=== PATIENT | female | born 1975 | race Caucasian/White ===

== ENCOUNTER 2021-01-16 11:02 | Outpatient (CLI) | payer OTHER, SELFPAY ==
--- NOTE | ~2021-01-16 | US_ITS ---
EXAMINATION: US thyroid DATE: 01/16/2021 11:27 INDICATION: Nontoxic thyroid nodule TECHNIQUE: Multiple ultrasound images of the thyroid were obtained. COMPARISON: None. FINDINGS: The right thyroid lobe measures 4.9 x 1.3 x 1.5 cm. The left thyroid lobe measures 4.4 x 1.2 x 1.4 c m . The thyroid isthmus measures 2 mm . 1-2 mm peripheral echogenic nodule within a wider than tall a nechoic cystic nodule with smooth margins in the right thyroid lobe which measures 7 mm in maximal di ameter (TI-RADS 1, benign, no FNA recommended). There is normal echotexture, echogenicity and vascula r flow throughout the remainder of the thyroid gland. IMPRESSION: 1. 7 mm benign TI RADS 1 cystic right thyroid nodule. Otherwise unremarkable thyroid. Reviewed, dictated and finalized at location B. IMPRESSION: 1. 7 mm benign TI RADS 1 cystic right thyroid nodule. Otherwise unremarkable th yroid.
== END 2021-01-16 11:03 | disposition home or self-care (01) ==
PROVIDERS: PCP Internal Medicine; Visit Provider Internal Medicine
DX: E04.1 Nontoxic single thyroid nodule (principal)
CPT/HCPCS: 76536

== ENCOUNTER 2021-07-04 15:30 | Emergency (ER) | payer OTHER, SELFPAY ==
[2021-07-04 15:37] VITALS: BP 121/90; PULSE 76; RESP 18; TEMP 36.7; O2SAT 100
--- NOTE | 2021-07-04 15:39 | ED.FEMALEGU ---
HPI - Female Genitourinary General Chief complaint: Urogenital-Female Stated complaint: UTI Time Seen by Provider: 07/04/21 15:50 Source: patient Mode of arrival: ambulatory Limitations: no limitations History of Present Illness HPI Narrative: Heather Covarrubias is a 46 yo female no PMH who [facility] with complaints of urgency frequency dysuria of for the last for 5 days she has been taking Azo and drinking cranberry juice but still has worsening symptoms. She has a history of UTI but has not had urinary tract infection in the last 3 years Related Data Home Medications Medication Instructions Recorded Confirmed cetirizine [Zyrtec] 10 mg PO DAILY 07/04/21 07/04/21 multivitamin with minerals [All 1 tablet PO DAILY 07/04/21 07/04/21 Purpose Multivitamin-Min] Allergies Allergy/AdvReac Type Severity Reaction Status Date / Time codeine Allergy Unknown Other Verified 07/04/21 15:52 Sulfa (Sulfonamide AdvReac Mild Nausea Verified 07/04/21 15:52 Antibiotics) Review of Systems Review of Systems: CONSTITUTIONAL: Denies fever, chills, sweats. EYES: Denies visual changes, redness, discharge. ENT: Denies rhinorrhea, congestion, sore throat, otalgia. CARDIOVASCULAR: Denies chest pain, palpitations, edema. RESPIRATORY: Denies dyspnea, wheezing, cough GASTROINTESTINAL: Denies abdominal pain, nausea, vomiting, diarrhea. GENITOURINARY: As dysuria, hematuria, abnormal discharge SKIN: Denies rash or itching. NEUROLOGIC: Denies numbness, or focal weakness. PSYCHIATRIC: Denies anxiety or depression. [facility] Past Medical History Medical History Abnormal TSH Anxiety Hx of basal cell carcinoma Family History Family History Mother Family history of mental disorder Father Family history of bipolar disorder Family history of diabetes mellitus in first degree relative Sibling Patient's brother is in good health Grandparent Family history of malignant neoplasm of breast Social History Social History Smoking status: Never smoker Second hand tobacco smoke exposure: No Alcohol intake: current Comments At time of signature, I agree with nursing past medical, surgical, social and family history. There is no relevant family history pertinent to the presenting complaint. Exam Narrative: GENERAL: This is a well-nourished, well-developed patient, in mild distress. HEAD: normocephalic, atraumatic. EYES:. Sclera clear/white. Vision is grossly intact. EARS: External ears normal, Hearing grossly intact. NOSE: External nose normal without nasal discharge, nares without redness, no rhinorrhea. THROAT: Mucous membranes moist, NECK: Neck supple, non-tender CARDIOVASCULAR: Regular rate and rhythm without murmurs, gallops, or rubs. RESPIRATORY: Clear to auscultation. Breath sounds equal bilaterally. No wheezes, rales, or rhonchi. GASTROINTESTINAL: Abdomen soft, non-tender, SKIN: warm, intact with no suspicious lesions or rash, good texture and turgor. NEURO: awake, alert, and oriented to person, place and time. There were no obvious focal neurologic abnormalities. Steady gait EXTREMITIES: Normal range of motion. BACK: Nontender without deformity Course Course Emergency Course: [facility] with 4 to 5 days of frequency and dysuria with no nausea vomiting or back pain And dipstick showed only nitrite was sent for culture Started on cephalexin 500 mg 1 twice daily x5 days Vital Signs Vital signs: Vital Signs Temperature 98.1 F 07/04/21 15:37 Pulse Rate 76 07/04/21 15:37 Respiratory Rate 07/04/21 15:37 Blood Pressure 121/90 07/04/21 15:37 Pulse Oximetry 100 07/04/21 15:37 Temperature 98.1 F 07/04/21 15:37 Pulse Rate 76 07/04/21 15:37 Respiratory Rate 18 07/04/21 15:37 Blood Pressure 121/90 07/04
== END 2021-07-04 16:22 | disposition home or self-care (01) ==
PROVIDERS: Emergency Provider Nurse Practitioner; PCP Internal Medicine
DX: R30.0 Dysuria (principal); F41.9 Anxiety disorder, unspecified; Z85.828 Personal history of other malignant neoplasm of skin
CPT/HCPCS: 81003; 87077; 87086; 87088; 87186; 99213; G0463

== ENCOUNTER 2022-08-19 16:25 | Outpatient (CLI) | payer OTHER, SELFPAY ==
--- NOTE | ~2022-08-19 | US_ITS ---
EXAMINATION: US thyroid DATE: 08/19/2022 16:45 INDICATION: Nontoxic single thyroid nodule. TECHNIQUE: Multiple ultrasound images of the thyroid were obtained. COMPARISON: Thyroid ultrasound 01/16/2021 FINDINGS: The right thyroid lobe measures 4.4 x 1.3 x 1.5 cm. The left thyroid lobe measures 4.7 x 1.5 x 1.5 c m. In the right thyroid lobe, there is an 8 mm predominantly cystic nodule (TI-RADS TR1). IMPRESSION: 1. Small thyroid nodule, likely benign. No follow-up is needed. Reviewed, dictated and finalized at location A. EXPEDITOR
== END 2022-08-19 16:26 | disposition home or self-care (01) ==
LOC: ANHIMG 16:27
PROVIDERS: PCP Internal Medicine; Visit Provider Internal Medicine
DX: E04.1 Nontoxic single thyroid nodule (principal)
CPT/HCPCS: 76536

== ENCOUNTER 2022-10-08 00:23 | Day surgery (SDC) | payer OTHER, SELFPAY ==
[2022-09-24 14:54] VITALS: BMI 26.8
[2022-10-08 07:08] VITALS: BP 123/81; PULSE 83; RESP 18; TEMP 36.3; O2SAT 100; BMI 27.8
[2022-10-08] MEDS: LACTATED RINGERS 1,000 ML 150 ML IV CONT (07:26)
--- NOTE | 2022-10-08 07:44 | WPDANESEPPF ---
Anes - Initial Pre Proc Eval Procedure: Operation Date: 10/08/22 08:30 Proposed Procedures p Screening Colonoscopy - Gordon Zelaya MD Date/Time: 10/08/22 07:44 Surgeon: Gordon Zelaya MD Pre Op Diagnosis: neoplasm screening Patient Data Age: 47 Gender: F Height: 1.73 m Weight: 83.2 kg Last Vital Signs Temp 97.4 F L 10/08/22 07:08 Pulse 83 10/08/22 07:08 Resp 18 10/08/22 07:08 BP 123/81 10/08/22 07:08 Pulse Ox 100 10/08/22 07:08 O2 Del Method Room Air 10/08/22 07:08 Allergies Allergy/AdvReac Type Severity Reaction Status Date / Time Sulfa (Sulfonamide AdvReac Mild Nausea Verified 10/08/22 07:06 Antibiotics) codeine AdvReac Unknown Nausea Verified 10/08/22 07:06 Home Medications Medication Instructions Recorded Confirmed Type cetirizine 10 mg tablet (Zyrtec) 10 mg PO DAILY 07/04/21 09/24/22 History multivitamin with minerals 1 tablet PO DAILY 07/04/21 09/24/22 History bupropion HCl 300 mg 24 hr tablet, 300 mg PO QAM #90 tabs 02/27/22 09/24/22 Rx extended release levothyroxine 50 mcg tablet 50 mcg PO DAILY #90 tabs 09/07/22 10/08/22 Rx buspirone 15 mg tablet 15 mg PO DAILY 10/08/22 10/08/22 History Patient hx anesthesia problems: none Family hx anesthesia problems: none Results Review: All pre-operative results and documents have been reviewed as part of the pre-operative evaluation. [facility] Past Medical History Medical History Abnormal TSH Anxiety Hx of basal cell carcinoma Family History Family History Mother Family history of mental disorder Father Family history of bipolar disorder Family history of diabetes mellitus in first degree relative Sibling Patient's brother is in good health Grandparent Family history of malignant neoplasm of breast Social History Social History (Updated 08/10/22 @ 16:27 by Kirby Meza MA) Smoking status: Never smoker Second hand tobacco smoke exposure: No Alcohol intake: current Drinks per week: 1 Substance use type: does not use Lack of Transportation: No Lack of Food: Never True Current Housing: I Have Housing Concerned About Future Housing: No Difficulty Paying Gas/Electric Bills: No Difficulty Paying for Meds: No Currently Unemployed: YES Education: High School Diploma/GED Difficulty w/ Childcare or Family Care: No Living arrangements: with family Spiritual care concerns: No Anes - Eval Final PreProcedure Day of Procedure 10/08/22 07:44 Patient weight: normal Heart: regular rate and rhythm Lungs: clear to auscultation Airway: Mallampati scale class II Neurological: alert and oriented Last oral intake: >/= 8 hours ASA classification: II Emergent: no Anesthetic plan: proceed Anesthesia type and monitoring: general GIVS and standard monitoring Results Review: All pre-operative results and documents have been reviewed as part of the pre-operative evaluation. Informed Consent: The patient's anesthetic plan and its attendant risks and benefits were discussed with the patient/family/POA. Questions were solicited and answers provided to the satisfaction of the patient/family/POA.
--- NOTE | 2022-10-08 07:51 | PM.HPGS ---
History of Present Illness History of Present Illness Consent: Risks, benefits, and alternatives have been discussed and questions answered. Patient agrees to proceed with procedure. Chief complaint: neoplasm screening Narrative: Heather Covarrubias is a 47 year old female Presents for screening colonoscopy. Patient's current weight appetite bowel movements are normal. Patient denies abdominal pain, she has had no bleeding. Current weight appetite bowel movements are normal. Family history noncontributory. Review of Systems Review of Systems: Review of systems noncontributory. [facility] Past Medical History Medical History Abnormal TSH Anxiety Hx of basal cell carcinoma Family History Family History Mother Family history of mental disorder Father Family history of bipolar disorder Family history of diabetes mellitus in first degree relative Sibling Patient's brother is in good health Grandparent Family history of malignant neoplasm of breast Social History Social History (Updated 08/10/22 @ 16:27 by Kibry Meza MA) Smoking status: Never smoker Second hand tobacco smoke exposure: No Alcohol intake: current Drinks per week: 1 Substance use type: does not use Lack of Transportation: No Lack of Food: Never True Current Housing: I Have Housing Concerned About Future Housing: No Difficulty Paying Gas/Electric Bills: No Difficulty Paying for Meds: No Currently Unemployed: YES Education: High School Diploma/GED Difficulty w/ Childcare or Family Care: No Living arrangements: with family Spiritual care concerns: No Meds Home Medications and Allergies Home Medications Medication Instructions Recorded Confirmed Type cetirizine 10 mg tablet (Zyrtec) 10 mg PO DAILY 07/04/21 09/24/22 History multivitamin with minerals 1 tablet PO DAILY 07/04/21 09/24/22 History bupropion HCl 300 mg 24 hr tablet, 300 mg PO QAM #90 tabs 02/27/22 09/24/22 Rx extended release levothyroxine 50 mcg tablet 50 mcg PO DAILY #90 tabs 09/07/22 10/08/22 Rx buspirone 15 mg tablet 15 mg PO DAILY 10/08/22 10/08/22 History Allergies Allergy/AdvReac Type Severity Reaction Status Date / Time Sulfa (Sulfonamide AdvReac Mild Nausea Verified 10/08/22 07:06 Antibiotics) codeine AdvReac Unknown Nausea Verified 10/08/22 07:06 Vital Signs Vital Signs - 24 hr 10/08/22 07:08 Temperature 97.4 F L Pulse Rate 83 Respiratory Rate 18 Blood Pressure 123/81 Pulse Oximetry 100 Oxygen Delivery Room Air Exam Narrative: Physical exam reveals patient to be alert. Vital signs stable. HEENT exam is unremarkable. Patient is anicteric. Lungs are clear to auscultation and percussion. Heart is without murmur or extra sounds. Abdomen bowel sounds present soft nontender with no organomegaly. Digital external rectal exam is normal. Assessment and Plan Assessment and plan (1) Encounter for screening colonoscopy: Code(s): Z12.11 - Encounter for screening for malignant neoplasm of colon Status: Acute Assessment and Plan: Patient presents for screening colonoscopy. She appears to be at average risk for colon polyps. Further recommendations may be given after endoscopy.
[2022-10-08 08:24] VITALS: BP 97/54; PULSE 85; RESP 23; O2SAT 100
[2022-10-08 08:34] VITALS: BP 99/61; PULSE 85; RESP 17; O2SAT 100
[2022-10-08 08:44] VITALS: BP 107/77; PULSE 66; RESP 17; O2SAT 100
== END 2022-10-08 09:06 | disposition home or self-care (01) ==
PROVIDERS: PCP Internal Medicine; Visit Provider Internal Medicine Gastroenterology
PROC: 0DJD8ZZ Inspection of Lower Intestinal Tract, Via Natural or Artificial Opening Endoscopic (ICD-10-PCS; CPT 45378; principal; 2022-10-08 08:30)
DX: Z12.11 Encounter for screening for malignant neoplasm of colon (principal); D12.8 Benign neoplasm of rectum; K64.8 Other hemorrhoids; F41.9 Anxiety disorder, unspecified
CPT/HCPCS: 45380; 88305; J2704; J7120

== ENCOUNTER → 2023-05-17 07:02 | Outpatient (CLI) | payer OTHER, SELFPAY ==
--- NOTE | ~2023-05-17 | MR_ITS ---
MRI of the brain Clinical History: Headache Technique: Axial and sagittal T1-weighted images were acquired. These were followed by axial T2-weigh layla, diffusion weighted, gradient, and FLAIR images. Coronal thin cut T1-weighted and T2-weighted analilia ges, and axial thin cut T1-weighted images, were acquired through the internal auditory canals. Findings: No abnormal signal seen in the brain parenchyma. No acute infarct, intracranial hemorrhage or mass lesion identified. Ventricles and subarachnoid spaces are unremarkable. Orbits are unremarkable. Paranasal sinuses and m astoid air cells are clear. Major intracranial flow voids appear intact. Sagittal midline structures are intact. No abnormality seen at the internal auditory canals or cerebellopontine angle regions. IMPRESSION: Unremarkable exam. Reviewed, dictated and finalized at location M. IMPRESSION: Unremarkable exam.
== END ==
PROVIDERS: PCP Internal Medicine; Visit Provider Internal Medicine
DX: R51.9 Headache, unspecified (principal)
CPT/HCPCS: 70551

== ENCOUNTER 2024-06-15 08:03 | Emergency (ER) | payer OTHER, SELFPAY ==
[2024-06-15 08:17] VITALS: BP 116/78; PULSE 88; RESP 16; TEMP 36.9; O2SAT 100
--- NOTE | 2024-06-15 08:24 | ED.URI ---
HPI - URI/Sore Throat General Chief Complaint: Upper Respiratory Infection Stated Complaint: congestion Time Seen by Provider: 06/15/24 08:26 Source: patient and RN notes reviewed Mode of arrival: ambulatory Limitations: no limitations History of Present Illness HPI Narrative: 49 y/o female presented for c/o cough, sore throat, nasal drainage and pressure, and reports ear pain right worse than left. Onset 4 days. Reports body aches yesterday. Taking Tiffanie seltzer, which caused 'paranoia' last night. Denies sob, wheezing, n/v/d/f/c. MD elicited complaint: cough Related Data Home Medications Medication Instructions Recorded Confirmed cetirizine 10 mg tablet (Zyrtec) 10 mg PO DAILY 07/04/21 06/15/24 multivitamin with minerals 1 tablet PO DAILY 07/04/21 06/15/24 Allergies Allergy/AdvReac Type Severity Reaction Status Date / Time Sulfa (Sulfonamide AdvReac Mild Nausea Verified 06/15/24 08:16 Antibiotics) codeine AdvReac Unknown Nausea Verified 06/15/24 08:16 Review of Systems Review of Systems: CONSTITUTIONAL: Endorses malaise, denies chills, sweats, fever EYES: Denies visual changes, redness, or discharge ENT: Reports rhinorrhea, congestion, sinus pain, otalgia, sore throat CARDIOVASCULAR: Denies chest pain, palpitations, edema RESPIRATORY: Reports cough, post nasal drainage. Denies dyspnea GASTROINTESTINAL: Denies abdominal pain, nausea, vomiting, diarrhea SKIN: Denies rash or itching MUSCULOSKELETAL: Endorses myalgia NEUROLOGIC: endorses headache PMFSH Past Medical History Medical History Abnormal TSH Anxiety Hx of basal cell carcinoma Family History Family History Mother Family history of mental disorder Father Family history of bipolar disorder Family history of diabetes mellitus in first degree relative Sibling Patient's brother is in good health Grandparent Family history of malignant neoplasm of breast Social History Social History Smoking status: Never smoker Second hand tobacco smoke exposure: No Alcohol intake: current Drinks per week: 1 Substance use type: does not use Lack of Transportation: No Lack of Food: Never True Current Housing: I Have Housing Concerned About Future Housing: No Difficulty Paying Gas/Electric Bills: No Difficulty Paying for Meds: No Currently Unemployed: YES Education: High School Diploma/GED Difficulty w/ Childcare or Family Care: No Living arrangements: with family Spiritual care concerns: No Exam Narrative: GENERAL: Ill-appearing, nontoxic no acute distress. EYES: conjunctivae clear ENT: Mucous membranes moist. Bilateral TMs erythematous, bulging and intact; canals not erythematous, no drainage; no tragal tenderness. Oropharynx erythematous without lesions or exudate, no drooling, no hoarseness, no trismus, uvula midline. No tripod positioning, muffled voice, soft palate or pharyngeal wall bulging NECK: Supple. No lymphadenopathy CHEST: Clear to auscultation, breath sounds equal. No wheezing, rhonchi, rales, or stridor. No respiratory distress, speaks in full sentences. HEART: Regular rate and rhythm. No murmur heard. SKIN: Warm, dry, no rash. NEURO: Alert and oriented x3. PSYCH: Normal mood and affect Course Course Emergency Course: Patient is aware of diagnosis, understands and agrees to treatment plan. Anticipatory guidance given. Patient agrees to follow-up as directed and is aware of reasons to seek care at the emergency department. Portions of this record may have been created with voice recognition software Level of Care: Express Care Visit Vital Signs Vital signs: Vital Signs Temperature 98.4 F 06/15/24 08:17 Pulse Rate 88 06/15/24 08:17 Respiratory Rate 16 06/15/24 08:17 Blood Pressure 116/78 06/15/24 08:17 Puls
[2024-06-15 08:39] LABS: EDINFLUASCREEN Negative; EDINFLUBSCREEN Negative
== END 2024-06-15 08:46 | disposition home or self-care (01) ==
PROVIDERS: Emergency Provider Nurse Practitioner Family; PCP Internal Medicine
DX: H66.93 Otitis media, unspecified, bilateral (principal); U07.1 COVID-19; Z85.828 Personal history of other malignant neoplasm of skin
CPT/HCPCS: 87426; 87804; 99213; G0463

== ENCOUNTER 2024-12-28 08:01 | Outpatient (NON) | payer OTHER, SELFPAY ==
--- OUTSIDE RECORDS SUMMARY | 2024-12-29 08:08 | XMS_ITS | Referral Summary ---
[facility] Organization [facility] Address [address] [place] [address] Care Team Providers Care Cat And Dog Bather Name Role Phone Tyrese Fields MD Primary Care Provider [phone] Fide Machado MD Unavailable [phone] Allergies No known active allergies Medications buPROPion XL (WELLBUTRIN XL) 300 mg 24 hr tablet Take 1 tablet (300 mg total) by mouth daily Active valACYclovir (VALTREX) 1 gram tablet Take 1 tablet (1,000 mg total) by mouth 2 (two) times a day Active cetirizine (ZyrTEC) 10 mg tablet Take 1 tablet (10 mg total) by mouth daily Active levothyroxine (SYNTHROID) 50 mcg tablet Take 1 tablet (50 mcg total) by mouth daily 12/12/2023 Active Active Problems Problem Noted Date Diagnosed Date Encounter for gynecological examination without abnormal finding 02/21/2024 Assessment & Plan (02/21/2024 8:54 AM CDT): The patient was here for her well woman exam. Recommended healthy diet and exercise. Recommend yearly mammograms and regular colonoscopy screening. Discussed importance of regular visits and cholesterol screening with PCP. RTC 1 year or PRN. 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 2-4 times a month 02/21/2024 Q2: How many drinks containi ng alcohol do you have on a typical day when you are drinking? 1 or 2 02/21/2024 Q3: How often do you have si x or more drinks on one occasion? 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 Not on file Not on file Not on file Last Filed Vital Signs Vital Sign Reading Time Taken Comments Blood Pressure 116/68 02/21/2024 8:26 AM CDT Pulse 96 09/23/2019 2:45 AM DIRECTOR [employer] COMPLIANCE Temperature 36.7 C (98.1 F) 09/22/2019 7:17 PM [employer]PL[employer]ANCE Respiratory Rate 16 09/22/2019 7:17 PM [employer]PLIANCE Oxygen Saturation 93% 09/23/2019 2:45 AM DIRECTOR [employer]PLIANCE Inhaled Oxygen Concentration - - Weight 81.9 kg (180 lb 9.6 oz) 02/21/2024 8:26 A M CDT Height 175.3 cm (5' 9 ) 02/21/2024 8:26 AM CDT Body Mass Index 26.67 02/21/2024 8:26 AM CDT Plan of Treatment Not on file Procedures Procedure Name Priority Date/Time Associated Diagnosis Comments SCREENING MAMMOGRAM BILATERAL W OSCAR Schedule Routine, Read Routine (OP Routine) 05/30/2020 4:13 PM CDT Encounter for screening mammogram for malignant neoplasm of breast from Last 3 Months or Most Recently Relevant to Health Maintenance Results * Screening Mammogram Bilateral W Oscar (05/30/2020 4:13 PM CDT) Anatomical Region Laterality Modality Breast Bilateral Mammography Narrative 05/31/2020 11:18 AM CDT Screening Mammogram Bilateral W Oscar: 05/30/20 Clinical: Encounter for screening mammogram for malignant neoplasm of breast. Prior Study Comparisons: None. This is a baseline study. Findings: Bilateral No significant masses, malignant type calcifications, skin thickening, nipple retraction, or significant lymphadenopathy is noted in either breast. The CAD review showed no significant findings. The breasts are heterogeneously dense, which may obscure small masses. The patient will be notified of results by letter. Impression: BI-RADS ATLAS category (overall): 1 Negative There is no mammographic evidence of malignancy. Routine Screening Mammogram in 1 Yr is recommended for bilateral Overall Assessment: 1 - Negative us Self Screening Mammogram IMG MAMMO PROCEDURES Fi nal Result from Last 3 Months or Most Recently Relevant to Health Maintenance Insurance [employer] [facility] [employer] OPEN ACCESS [facility] [id number] Care Teams Cat And Dog Bather Relationship Specialty Start Date End Date Tyrese Fields MD [address] [place] [address] PCP - General 10/19/11 Fide Machado MD [address] [place] [address] Consulting Physician Obstetrics and Gynecology 01/10/24
--- OUTSIDE RECORDS SUMMARY | 2024-12-29 08:08 | XMS_ITS | Clinical Summary ---
Author Organization [facility] Address [address] [facility] [address] Care Team Providers Care Radiologic Tech Name Role Phone Tyrese Fields MD Primary Care Provider [phone]- [phone] Fide Machado MD Unavailable [phone] Allergies No known active allergies Medications buPROPion [...] allergic rhinitis 07/21/2013 Overview (01/14/2017): Seasonal allergies Surgical History Surgery Date Site/Laterality Comments HYSTERECTOMY 09/18/2016 TLH/BS - Biest; abnormal bleeding and pelvic pain LAPAROSCOPY 12/10/2015 - 01/09/2016 WNL per patient COLONOSCOPY 12/12/2015 Normal per patient BASAL CELL CARCINOMA EXCISION Neck ESSURE TUBAL LIGATION 10/11/2008 - 10/10/2009 and Ablation DILATION AND CURETTAGE OF UTERUS 07/13/2016 Benign / Rock BASAL CELL CARCINOMA EXCISION 10/11/2017 - 10/10/2018 right side of nose COLONOSCOPY 08/11/2023 - 09/09/2023 2 polyps; repeat 3 years Medical History Medical History Date Comments Pneumonia 12/2015 Hospitalized / ? Sepsis Menorrhagia Irregular menses - s/p TLH/BS - Biest 09/2016 HSV (herpes simplex virus) infection Anxiety and depression Basal cell carcinoma (BCC) of neck Excision Urinary incontinence 2017 referred to Ayesha....2019 - mixed incontinence - second referral to Ayesha. Discussed PT, trial Vesicare Family history of breast cancer MGM, PGM Family History Medical History Relation Name Comments Diverticulitis Brother Crohn's disease Father Bone cancer Maternal Grandfather Breast cancer Maternal Grandmother Anxiety disorder Mother Multiple sclerosis Other 2 Family hi story of Multiple sclerosis; Crohn's disease Other 3 Family histo ry of Crohn's disease; Hypertension Other 5 Family history of hypertension - (Added by TW Conv) Colon cancer Paternal Grandfather Breast cancer Paternal Grandmother Ovarian cancer Neg Hx Uterine cancer Neg Hx Relation Name Status Comments Brother Father Maternal Grandfather Maternal Grandmother Mother Other 1 Other 2 Other 3 Other 4 Other 5 Other 6 Other 7 Paternal Grandfather Paternal Grandmother Social History Tobacco Use Types Packs/Day Years [...] on file Legal Sex Female 2:11 AM BACKING IN MACHINE 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 Gender Identity Not on file Sexual Orientation Not on file 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 Not on file Not on file Not on file Obstetrics History Para Term AB IAB SAB Ectopic Multiple Livin g Live Births 2 2 2 2 2 Date Outcome GA Total Labor Labor/2nd/3rd Weight Sex Type Anes PTL Nathaly A1 A5 Name Clin Term Vag-Spo nt Term Vag-Spo nt Last Filed Vital Signs Vital Sign Reading Time Taken Comments Blood Pressure 116/68 02/21/2024 8:26 AM CDT Pulse 96 09/23/2019 2:45 AM BACKING IN MACHINE TENDER Temperature 36.7 C (98.1 F) 09/22/2019 7:17 PM BACKING IN MACHINE TENDER Respiratory Rate 16 09/22/2019 7:17 PM BACKING IN MACHINE TENDER Oxygen Saturation 93% 09/23/2019 2:45 AM BACKING IN MACHINE TENDER Inhaled Oxygen Concentration - - Weight 81.9 kg (180 lb 9.6 oz) 02/21/2024 8:26 A M CDT Height 175.3 cm (5' 9 ) 02/21/2024 8:26 AM CDT Body Mass Index 26.67 02/21/2024 8:26 AM CDT Plan of Treatment Health Maintenance Due Date Last Done Comments Colon Cancer Screening-Colonoscopy 1977 Depression Screening 1977 Hepatitis C Screening 1977 DTaP/Tdap/Td Vaccine (1 - Tdap) 1988 Hepatitis B Screening 1995 Breast Cancer Screening-Mammogram 05/30/2021 05/30/2020 Covid-19 Vaccine ( season) 2024 10/08/2021, 01/28/2021, 12/31/2020 Influenza Vaccine (#1) 2024 3, 09/12/2022, 08/24/2021, Additional history exists Regular Well Visit/Exam 18-64 02/20/2025 02/21/2024 Pneumococcal vaccine <65 Aged Out No longer eligible based on patient's age to complete this topic Procedures Procedure Name Priority Date/Time Associated Diagnosis [...] Most Recently Relevant to Health Maintenance Insurance [employer] [facility] [employer]LINK OPEN ACCESS Member Subscriber Plan / Payer (Ef fective 2020-Present) Name:Heather Smith Relation to Subscriber:Self Name:Heather Smith Payer ID:[id number] Type:HEALTHLINK HMO/PPO Address: [address] [place] [id number] [facility] [address] Care Teams Radiologic Tech Relationship Specialty Start Date End Date Tyrese Fields MD [address] [facility] [address] [place], [place] [id number] PCP - General 10/19/11 Fide Machado MD [address] [place] [address] Consulting Physician Obstetrics and Gynecology 01/10/24
--- OUTSIDE RECORDS SUMMARY | 2024-12-29 08:08 | XMS_ITS | Clinical Summary ---
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 Gender Identity Not on file Sexual Orientation Not on file Plan of Treatment Health Maintenance Due Date Last Done Comments Cervical Cancer Screening Pa p Smear (Age 30 to 64) Every 3 Years 1977 Colorectal Cancer Screening Colonoscopy (10 Years) 1977 Annual Physical 1980 Hepatitis C 1995 DTaP, Tdap and Td Vaccines ( 1 - Tdap) 1996 Hepatitis B Vaccines (1 of 3 - 19+ 3-dose series) 1996 Cervical Cancer Screening Pa p with HPV Testing (Age 30 to 64) Every 5 Years 2007 Cervical Cancer Screening with HPV 2007 Mammogram Screening 2017 COVID-19 Vaccine (2023-2 5 season) 2024 Influenza Adult (#1) 2024 Meningococcal B Vaccine Aged Out No l onger eligible based on patient's age to complete this topic Meningococcal Vaccine Aged Out No chayito patrick eligible based on patient's age to complete this topic Pneumococcal Vaccine: Pediat rics (0 to 5 Years) and At-Risk Patients (6 to 64 Years) Aged Out No longer eligible b ased on patient's age to complete this topic RSV Immunizations Under 20 Months Aged Out No longer eligible based on patient's age to complete this topic
--- OUTSIDE RECORDS SUMMARY | 2024-12-29 08:08 | XMS_ITS | Encounter Summary ---
Author Organization [facility] Care Team Providers Care Dairy Farm Operator Name Role Phone Tyrese Fields MD Primary Care Provider [phone]- [phone] Fide Machado MD Unavailable [phone] Encounter Details Date Type Department Care Team (Latest Contact Info) Description 12/12/2015 Orders Only [facility] CLINCONV Provider, MD [place] [address] [place] [address] Social History Tobacco Use Types Packs/Day Years Used Date Smoking Tobacco: Never Alcohol Use Standard Drinks/Week Comments No 0 (1 standard drink = 0.6 oz pur e alcohol) Comments Unknown Sex and Gender Information Value Date Recorded Sex Assigned at Not on file Legal 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 Historical Provider Final Res ult * PROCEDURE - RESULT (12/12/2015 12:00 AM PEARL CUTTER) Narrative 12/12/2015 12:00 AM PEARL CUTTER Ordered by an unspecified provider. us Historical Provider MD Final Res ult documented in this encounter Visit Diagnoses Not on filedocumented in this encounter Care Teams Dairy Farm Operator Relationship Specialty Start Date End Date Tyrese Fields MD [address] [place] [address] PCP - General 10/19/11 Fide Machado MD [address] [place] [address] Consulting Physician Obstetrics and Gynecology 01/10/24 documented as of this encounter
== END 2024-12-28 08:02 | disposition home or self-care (01) ==
LOC: ANHLAB 12-29 08:03
PROVIDERS: PCP Internal Medicine; Visit Provider Plastic Surgery
DX: D48.5 Neoplasm of uncertain behavior of skin (principal)
CPT/HCPCS: 88305; 88342

== ENCOUNTER → 2025-04-09 15:34 | Outpatient (REF) | payer OTHER, SELFPAY ==
--- NOTE | 2025-04-09 15:34 | S_PTH ---
PATIENT: Heather Covarrubias LOC: [facility] U#:[id number] AGE/SX: 50/F ROOM: RE04/09/[address]: Huseyin Lawrence MD : 1975 BED: DIS: SPEC #: [id number] RECD: 04/10/25 07:26 STATUS: DINORA REMelida #: [id number] JULY: 04/09/25 15:[address]: Huseyin Lawrence DEPT: [facility] Surgical RECD BY: Lani Corral ENTERED: 04/10/25 07:27 SP TYPE: Surgical OTHR DR: Sundar Mosher DO Tissues: A - Skin Procedures: Hematoxylin and Eosin Stain Gross and Microscopic Level 4
--- OUTSIDE RECORDS SUMMARY | 2025-04-09 15:36 | XMS_ITS | Encounter Summary ---
Author Organization [facility] Address [address] [place] [address] Care Team Providers Care Acls Nurse Name Role Phone Tyrese Fields DO Primary Care Provider [phone] Encounter Details Date Type Department Care Team (Late st Contact Info) Description 01/02/2025 Lab Requisition [facility] - Pathology Lab [address] [place] [id number] Lloyd Sandra MD [address] [place] [address] Illness, unspecified Social History Tobacco Use Types Packs/Day Years Used Date Smoking Tobacco: Never Assessed Comments Unknown Sex and Gender Information Value Date Recorded Sex Assigned at Not on file Legal Sex Female 11:12 AM MILLER ROD MILL Gender Identity Not on file Sexual Orientation Not on file documented as of this encounter Plan of Treatment Pending Results Name Type Priority Associated Diagnoses Date /Time SLIDE PREP HISTOLOGY Pathology Cytology Routine Illness, unspecified 01/02/2025 3:13 PM CDT documented as of this encounter Visit Diagnoses Diagnosis Illness, unspecified documented in this encounter Care Teams Acls Nurse Relationship Specialty Start Date End Date Tyrese Fields DO [address] [facility] [address] [place] [address] PCP - General 10/09/22 documented as of this encounter
--- OUTSIDE RECORDS SUMMARY | 2025-04-09 15:36 | XMS_ITS | Clinical Summary ---
Author Organization [facility] Address [address] [place] [address] Care Team Providers Care Envelope Stamping Machine Operator Name Role Phone Tyrese Fields MD Primary Care Provider [phone]- [phone] Fide Machado MD Unavailable [phone] Allergies No known active allergies Medications buPROPion XL (WELLBUTRIN XL) 300 mg 24 hr tablet Take 1 tablet (300 mg total) by mouth daily Active valACYclovir (VALTREX) 1 gram tablet Take 1 tablet (1,000 mg total) by mouth daily Active cetirizine (ZyrTEC) 10 mg tablet Take 1 tablet (10 mg total) by mouth daily Active levothyroxine (SYNTHROID) 50 mcg tablet Take 1 tablet (50 mcg total) by mouth daily 12/12/2023 Active Active Problems Problem Noted Date Diagnosed Date Heterogeneously dense tissue of both breasts on mammography 02/22/2025 Assessment & Plan (02/22/2025 8:54 AM CDT): Discussed with pt most recent mammogram WNL with dense breast tissue. Discussed that with heterogeneously dense or extremely dense tissue, increased risk of breast CA as well as abnormalities more difficulty to oyster picker on imaging. Discussed option for breast risk assessment and possible increased surveillance to every 6 month mammogram and MRI or mammogram and ultrasound. Pt desires to do breast risk assessment due to both grandmothers had breast CA. Order sent and advised pt will be contacted by staff from [facility]. Encounter for gynecological examination without abnormal finding 02/21/2024 Assessment & Plan (02/22/2025 8:53 AM CDT): The patient was here for her well woman exam. Recommended healthy diet and exercise. Recommend yearly mammograms and regular colonoscopy screening. Discussed importance of regular visits and cholesterol screening with PCP. RTC 1 year or PRN. Assessment & Plan (02/21/2024 8:54 AM CDT): [...] allergic rhinitis 07/21/2013 Overview (01/14/2017): Seasonal allergies Encounters Date Type Department Care Team Description 03/02/2025 Results Follow-Up [facility] [address] [facility] [address] [place] [id number] Katharine Pickett NP Pap and High Risk HPV and Genotyping (Cytology Component) 02/27/2025 [facility] Breast Risk Eligibility [facility] [address] [facility] [address] [place] [address] Evie Garcia 02/22/2025 2:07 PM CDT - 02/22/2025 11:59 PM CDT Hospital Encounter [facility] [address] [place] [phone] Encounter for gynecological examination without abnormal finding; Screening for human papillomavirus; Screening for malignant neoplasm of cervix Discharge Disposition: Discharge to home or self care 02/22/2025 10:07 AM CDT - 02/22/2025 11:59 PM CDT Hospital Encounter [facility] Imaging Center at [address] [address] Screening mammogram, encounter for Discharge Disposition: Discharge to home or self care 02/22/2025 8:30 AM CDT Office Visit [facility] [address] [facility] [address] [place] [address] Eladia Treviño NP Encounter for gynecological examination without abnormal finding (Primary Dx); Screening for human papillomavirus; Screening for malignant neoplasm of cervix; History of skin cancer; Heterogeneously dense tissue of both breasts on mammography; Family history of breast cancer from Last 3 Months Surgical History Surgery Date Site/Laterality Comments HYSTERECTOMY 09/18/2016 TL/BS - Biest; abnormal bleeding and pelvic pain LAPAROSCOPY 12/10/2015 - 01/09/2016 WNL per patient COLONOSCOPY 12/12/2015 Normal per patient BASAL CELL CARCINOMA EXCISION Neck ESSURE TUBAL LIGATION 10/11/2008 - 10/10/2009 and Ablation DILATION AND CURETTAGE OF UTERUS 07/13/2016 Benign / Rock BASAL CELL CARCINOMA EXCISION 10/11/2017 - 10/10/2018 right side of nose COLONOSCOPY 08/11/2023 - 09/09/2023 2 polyps; repeat 3 years BASAL CELL CARCINOMA EXCISION 10/11/2024 - 10/10/2025 right leg Medical History Medical History Date Comments Pneumonia 12/2015 Hospitalized / ? Sepsis Menorrhagia Irregular menses - s/p TLH/BS - Biest 09/2016 HSV (herpes simplex virus) infection Anxiety and depression Basal cell carcinoma (BCC) of neck Excision Urinary incontinence 2017 referred to Ayesha....2020 - mixed incontinence - second referral to [...] you have a drink containing alc ohol? Monthly or less 03/06/2025 Q2: How many drinks containi ng alcohol do you have on a typical day when you are drinking? 1 or 2 03/06/2025 Q3: How often do you have si x or more drinks on one occasion? Less than monthly 03/06/2025 Exercise Vital Sign Answer Date Recorde d On average, how many days pe r week do you engage in moderate to strenuous exercise (like a brisk walk)? 3 days 03/06/2025 On average, how many minutes do you engage in exercise at this level? 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 on file Not on file Not on file Obstetrics History Para Term AB IAB SAB Ectopic Multiple Livin g Live Births 2 2 2 2 2 Date Outcome GA Total Labor Labor/2nd/3rd Weight Sex Type Anes PTL Nathaly A1 A5 Name Clin Term Vag-Spo nt Term Vag-Spo nt Last Filed Vital Signs Vital Sign Reading Time Taken Comments Blood Pressure 112/64 02/22/2025 8:22 AM CDT Pulse 96 09/23/2019 2:45 AM SULFUR BURNER Temperature 36.7 C (98.1 F) 09/22/2019 7:17 PM SULFUR BURNER Respiratory Rate 16 09/22/2019 7:17 PM SULFUR BURNER Oxygen Saturation 93% 09/23/2019 2:45 AM SULFUR BURNER Inhaled Oxygen Concentration - - Weight 81.6 kg (180 lb) 02/22/2025 10:57 AM CDT Height 175.3 cm (5' 9) 02/22/2025 10:57 AM CDT Body Mass Index 26.58 02/22/2025 10:57 AM CDT Plan of Treatment Health Maintenance Due Date Last Done Comments Colon Cancer Screening-Colonoscopy 1977 Depression Screening 1977 Hepatitis C Screening 1977 DTaP/Tdap/Td Vaccine (1 - Tdap) 1988 Hepatitis B Screening 1995 Covid-19 Vaccine (4 - season) 2024 10/08/2021, 01/28/2021, 12/31/2020 Influenza Vaccine (Season Ended) 2025 09/28/2023, 09/12/2022, 08/24/2021, Additional history exists Breast Cancer Screening-Mammogram 02/22/2026 02/22/2025, 05/30/2020 Regular Well Visit/Exam 18-64 02/22/2026 02/22/2025, 02/21/2024 Cervical Cancer Screening Discontinued 02/22/2025 Pneumococcal vaccine <65 Aged Out No longer eligible based on patient's age to complete this topic Procedures Procedure Name Priority Date/Time Associated Diagnosis Comments SCREENING MAMMOGRAM BILATERAL W OSCAR Schedule Routine, Read Routine (OP Routine) 02/22/2025 10:56 AM CDT Screening mammogram, encounter for PAP AND HIGH RISK HPV, REFLEX TO GENOTYPING Routine 02/22/2025 9:19 AM CDT Encounter for gynecological examination without abnormal finding Screening for human papillomavirus Screening for malignant neoplasm of cervix VAGINAL THINPREP PROCESSING (MOLECULAR COMPONENT) Routine 02/22/2025 9:19 AM CDT Encounter for gynecological examination without abnormal finding Screening for human papillomavirus Screening for malignant neoplasm of cervix VAGINAL HIGH RISK HPV DNA DETECTION WITH GENOTYPING Routine 02/22/2025 9:19 AM CDT Encounter for gynecological examination without abnormal finding Screening for human papillomavirus Screening for malignant neoplasm of cervix from Last 3 Months Results * Screening Mammogram Bilateral W Oscar (02/22/2025 10:56 AM CDT) Anatomical Region Laterality Modality Breast Bilateral Mammography Impressions 02/22/2025 1:34 PM CDT Bilateral No evidence of malignancy in either breast. OVERALL BI-RADS FINAL ASSESSMENT: 1 - Negative RECOMMENDATION: Recommend bilateral annual screening mammography. Narrative 02/22/2025 1:34 PM CDT EXAMINATION: Screening Mammogram Bilateral W Oscar: 02/22/2025 COMPARISON: Relevant prior studies available at the time of interpretation were reviewed. TECHNIQUE: Mammography was performed with 2D and digital breast tomosynthesis (DBT) images. CAD was utilized. BREAST PARENCHYMAL COMPOSITION: The breasts are heterogeneously dense, which may obscure small masses. FINDINGS: Bilateral There is no suspicious mass, calcification, or architectural distortion in either breast. us Self Screening Mammogram IMG MAMMO PROCEDURES Fi nal Result * Vaginal ThinPrep processing (Molecular Component) (02/22/2025 9:19 AM CDT) Vaginal ThinPrep processing (Molecular component) Specimen received for processing. Vaginal 02/22/2025 9:19 AM CDT 02/22/2025 3:14 PM CDT Eladia Treviño VAMP THROATER LAB BODY FLUIDS AND STOOL S ORDERABLES Final Result [facility] [address] [place] [address] * Vaginal High Risk HPV DNA Detection with Genotyping (Molecular component) (02/22/2025 9:19 AM CDT) HPV HR non 16/18 vaginal Negative Negative [facility] Comment: The following Other High Risk HPV types were not detected: 31, 33, 35, 39, 45, 51, 52, 56, 58, 59, 66, and 68. ADDITIONAL INFORMATION Testing was performed using the hayden HPV assay ([employer] This report is intended for use in clinical monitoring and management of patients. It is not intended for use in medical-legal applications. This test has been modified from the community outreach specialist's instructions. Its performance characteristics were determined by [facility] in a manner consistent with CLIA requirements. This test has not been cleared or approved by the U.S. Food and Drug Administration. Test Performed by: [facility] - [facility] [address] [place] [address] Pump Oiler: Karey Mccullough Ph.D.; CLIA# [id number] HPV HR 16 vaginal Negative Negative [facility] HPV HR 18 vaginal Negative Negative [facility] Vaginal 02/22/2025 9:19 AM CDT 02/23/2025 4:41 PM CDT Narrative [facility] - 02/26/2025 6:42 PM CDT Clinical history and diagnosis->z01.419 Number of vials->1 Testing type->Screening Last menstrual period (date if known)->z01.419 Eladia Treviño VAMP THROATER LAB BODY FLUIDS AND STOOL S ORDERABLES Final Result [facility] [address] [place] [address] [facility] * Pap and High Risk HPV and Genotyping (Cytology Component) (02/22/2025 9:19 AM CDT) Vaginal (Pap test) 02/22/2025 9:19 AM CDT 02/23/2025 4:41 PM CDT Narrative [facility] - 03/01/2025 3:37 PM CDT EPIC results best viewed via link to PDF [place] [id number] [place], [place] [address] Tele: Jeannine Denton MD - Financial Investment Manager CYTOLOGY REPORT Note to Patients: This report may contain a detailed description of human tissue sent by a health care provider to the laboratory for pathologic evaluation. The content of this report is essential for diagnosis and may provide important critical findings. This information may be unfamiliar to patients to review without a medical professional present. It is advised that the patient review this report in the presence of a health care provider who can answer questions and explain the details. Patient Name: HEATHER SMITH Address: [address] [place] [address]- Gender: F : 1975 (Age: 49) Service: Location: Hospital #: [id number] Patient Type: [facility] SPECIMEN Taken: 02/22/2025 Reported: 03/01/2025 Physician(s): JAZZY Sandoval FINAL DIAGNOSIS: SOURCE OF SPECIMEN - ThinPrep Pap and HPV w/ reflex Genotyping: STATEMENT OF ADEQUACY Source: Vaginal - Satisfactory for evaluation - Case screened using computer assisted imaging technology GENERAL CATEGORIZATION: - Negative for intraepithelial lesion or malignancy cad/03/01/2025 15:37Carley Bustamante M.S., CT (ASCP) Report Reviewed and Electronically Signed By Carley Bustamante M.S., CT (ASCP)Clerical Data Follow A; G0145 DIAGNOSIS COMMENT: Ancillary Testing: HPV Genotype 16 - Not Detected Reference Range: Not Detected HPV Genotype 18 - Not Detected Reference Range: Not Detected HPV High Risk Group (31, 33, 35, 39, 45, 51, 52, 56, 58, 59, 66 and 68) - Not Detected Reference Range: Not Detected This test was performed using the [employer]DEN 4800 REPORT IMAGES AND/OR SCANNED DOCUMENTS ONLY VIEWABLE IN PDF FORMAT The Pap test is a screening test used to aid in the detection of cervical cancer and its precursors. It should not be the sole means by which malignant and premalignant lesions are diagnosed. Both false negative and false positive results may occur. It also has poor sensitivity for the detection of endometrial lesions and should not be used to evaluate suspected endometrial abnormalities. For these reasons it is most important to obtain Pap tests at regular intervals, as recommended by your physician or nurse practitioner. Frozen section, operating room consultation, gross examination and dissection, and case sign out may have been performed in part or completely in the following laboratories: [facility], [facility], [place], [place] [address] [place] [address], [address] [place] [id number]. [place] Eladia Treviño [facility] CYTOLOGY ORDERABLES F inal Result PATHOLOGY [facility] Laboratory Receiving [address] [place] [address] from Last 3 Months Insurance [facility] [id number] [facility] [id number] Care Teams Envelope Stamping Machine Operator Relationship Specialty Start Date End Date Tyrese Fields MD [address] [place], [place] [id number] PCP - General 10/19/11 Fide Machado MD [address] [place] [address] Consulting Physician Obstetrics and Gynecology 01/10/24
--- OUTSIDE RECORDS SUMMARY | 2025-04-09 15:36 | XMS_ITS | Clinical Summary ---
Author Organization [facility] Address [address] [place] [address] Care Team Providers Care Mri Ct Tech Name Role Phone Unavailable Primary Care Provider Unavailabl e Social History Tobacco Use Types Packs/Day Years Used Date Smoking Tobacco: Never Assessed Comments Unknown Sex and Gender Information Value Date Recorded Sex Assigned at Not on file Legal Sex Female 10:21 PM REDYE HAND Gender Identity Not on file Sexual Orientation [...] 2017 COVID-19 Vaccine (2023-2 5 season) 2024 Meningococcal B Vaccine Aged Out No l onger eligible based on patient's age to complete this topic Meningococcal Vaccine Aged Out No chayito patrick eligible based on patient's age to complete this topic Pneumococcal Vaccine: Pediat rics (0 to 5 Years) and At-Risk Patients (6 to 49 Years) Aged Out No longer eligible b ased on patient's age to complete this topic RSV Immunizations Under 20 Months Aged Out No longer eligible based on patient's age to complete this topic
--- OUTSIDE RECORDS SUMMARY | 2025-04-09 15:36 | XMS_ITS | Referral Summary ---
Author Organization [facility] Address [address] [place] [address] Care Team Providers Care Tow Bar Driver Name Role Phone Tyrese Fields MD Primary Care Provider +- [phone] Fide Machado MD Unavailable [phone] Encounters Date Type Department Care Team Description 03/02/2025 Results Follow-Up [facility] [address] [place] [address] Katharine Pickett NP Pap and High Risk HPV and Genotyping (Cytology Component) 02/27/2025 [facility] Breast Risk Eligibility [facility] [address] [place] [address] Evie Garcia 02/22/2025 2:07 PM CDT - 02/22/2025 11:59 PM CDT Hospital Encounter [facility] [address] [place] [address] Encounter for gynecological examination without abnormal finding; Screening for human papillomavirus; Screening for malignant neoplasm of cervix Discharge Disposition: Discharge to home or self care 02/22/2025 10:07 AM CDT - 02/22/2025 11:59 PM CDT Hospital Encounter [facility] at [address] [address] Screening mammogram, encounter for Discharge Disposition: Discharge to home or self care 02/22/2025 8:30 AM CDT Office Visit [facility] [address] [place] [address] Eladia Treviño NP Encounter for gynecological examination without abnormal finding (Primary Dx); Screening for human papillomavirus; Screening for malignant neoplasm of cervix; History of skin cancer; Heterogeneously dense tissue of both breasts on mammography; Family history of breast cancer from Last 3 Months Allergies No known active allergies Medications buPROPion [...] as well as abnormalities 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 Discussed option for breast risk assessment and possible increased surveillance to every 6 month mammogram and MRI or mammogram and ultrasound. Pt desires to do breast risk assessment due to both grandmothers had breast CA. Order sent and advised pt will be contacted by staff from [facility]. 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 Not on file Not on file Not on file Last Filed Vital Signs Vital Sign Reading Time Taken Comments Blood Pressure 112/64 02/22/2025 8:22 AM CDT Pulse 96 09/23/2019 2:45 AM CATSHOVEL DRIVER Temperature 36.7 C (98.1 F) 09/22/2019 7:17 PM CATSHOVEL DRIVER Respiratory Rate 16 09/22/2019 7:17 PM CATSHOVEL DRIVER Oxygen Saturation 93% 09/23/2019 2:45 AM CATSHOVEL DRIVER Inhaled Oxygen Concentration - - Weight 81.6 kg (180 lb) 02/22/2025 10:57 AM CDT Height 175.3 cm (5' 9) 02/22/2025 10:57 AM CDT Body Mass Index 26.58 02/22/2025 10:57 AM CDT Plan of Treatment Not on [...] CDT 02/22/2025 3:14 PM CDT Eladia Treviño WAREHOUSE RECEIVER LAB BODY FLUIDS AND STOOL S ORDERABLES Final Result [facility] [address] Department of [employer] [place] [address] * Vaginal High Risk HPV DNA Detection with Genotyping (Molecular component) (02/22/2025 9:19 AM CDT) Pathologist [facility] HPV HR non 16/18 vaginal Negative Negative [facility] Comment: The following Other High Risk HPV types were not detected: 31, 33, 35, 39, 45, 51, 52, 56, 58, 59, 66, and 68. ADDITIONAL INFORMATION Testing was performed using the hayden HPV assay ([employer] This report is intended for use in clinical monitoring and management of patients. It is not intended for use in medical-legal applications. This test has been modified from the marketing intern's instructions. Its performance characteristics were determined by [facility] in a manner consistent with CLIA requirements. This test has not been cleared or approved by the U.S. Food and Drug Administration. Test Performed by: [facility] [place] [address] Developmental Psychologist: Karey Mccullough Ph.D.; CLIA# [id number] HPV HR 16 vaginal Negative Negative [facility] HPV HR 18 vaginal Negative Negative [facility] Vaginal 02/22/2025 9:19 AM CDT 02/23/2025 4:41 PM CDT Narrative [facility] - 02/26/2025 6:42 PM CDT Clinical history and diagnosis->z01.419 Number of vials->1 Testing type->Screening Last menstrual period (date if known)->z01.419 Eladia Treviño NP LAB BODY FLUIDS AND STOOL S ORDERABLES Final Result [facility] [address] Department [place] [address] [facility] * Pap and High Risk HPV and Genotyping (Cytology Component) (02/22/2025 9:19 AM CDT) Vaginal (Pap test) 02/22/2025 9:19 AM CDT 02/23/2025 4:41 PM CDT Narrative PATHOLOGY [facility] - 03/01/2025 3:37 PM CDT EPIC results best viewed via link to PDF [address] [address] Tele: Jeannine Denton MD - Eyewear Manufacturing Supervisor CYTOLOGY REPORT Note to Patients: This report [...] the details. Patient Name: HEATHER SMITH Address: [address] [place] [address]- Gender: F : 1975 (Age: 49) Service: Location: N : [id number] [facility] #: [id number] Patient Type: [facility] SPECIMEN Taken: 02/22/2025 Reported: 03/01/2025 Physician(s): JAZZY Sandoval FINAL DIAGNOSIS: SOURCE OF SPECIMEN - ThinPrep Pap and HPV w/ reflex Genotyping: STATEMENT OF ADEQUACY Source: Vaginal - Satisfactory for evaluation - Case screened using computer assisted imaging technology GENERAL CATEGORIZATION: - Negative for intraepithelial lesion or malignancy cad/03/01/2025 15:37Carley Bustamante M.S., FARNAZ (ASCP) Report Reviewed and Electronically Signed By Carley Bustamante M.S., FARNAZ (ASCP)Clerical Data Follow A; G0145 DIAGNOSIS COMMENT: [...] part or completely in the following laboratories: [facility], [address] [place] [address], [address] [place] [address]. Eladia Treviño NP LAB CYTOLOGY ORDERABLES F inal Result PATHOLOGY [facility] Laboratory Receiving [address] [place] [address] from Last 3 Months Insurance [facility] [id number] [facility] [id number] Care Teams Tow Bar Driver Relationship Specialty Start Date End Date Tyrese Fields MD [address] [address] PCP - General 10/19/11 Fide Machado MD [address] [address] Consulting Physician Obstetrics and Gynecology 01/10/24
--- OUTSIDE RECORDS SUMMARY | 2025-04-09 15:36 | XMS_ITS | Clinical Summary ---
Author Organization [facility] Address [address] [place] [address] Care Team Providers Care Pantograph Setter Name Role Phone Tyrese Fields Shar DO Primary Care Provider Source Comments [facility],non-owned Affiliates and Associated Physician Practices is amultiple site organization consisting of ambulatory clinics and hospital sitesin [place], [place], [place] and [place]. This disclosure is being madepursuant to the Care Everywhere program and may not contain all information available regarding this patient. 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 Gender Identity Not on file Sexual Orientation Not on file Plan of Treatment Health Maintenance Due Date Last Done Comments COLOGUARD (AGES 45-75) - COL ON CA SCREENING 1975 COLON MONITORING 1977 COLONOSCOPY - COLON CA SCREENING 1977 CT COLONOGRAPHY - COLON CA SCREENING 1975 Colorectal Cancer Screening 1977 FIT - COLON CA SCREENING 1977 FLEX SIG - COLON CA SCREENING 1977 LIPID TESTING 1975 MAMMOGRAM 1977 HIV SCREENING 1992 HEPATITIS C SCREENING 04/05/1995 DTAP/TDAP/TD VACCINES (1 - Tdap) 1996 HEPATITIS B VACCINE (1 of 3 - 19+ 3-dose series) 1996 PAP SMEAR 1998 COVID-19 VACCINE (2023-2 5 season) 2024 DEPRESSION SCREENING 10/11/2024 INFLUENZA VACCINE (Season Ended) 2025 ZOSTER VACCINE (1 of 2) 2027 HIB VACCINE Aged Out No longer eligi ble based on patient's age to complete this topic HPV VACCINE Aged Out No longer eligi ble based on patient's age to complete this topic MENINGOCOCCAL (Group B) VACC INE SHARED DECISION-MAKING Aged Out No longer eligibl e based on patient's age to complete this topic MENINGOCOCCAL GROUPS A/C/Y/W VACCINE Aged Out No longer eligible b ased on patient's age to complete this topic PNEUMOCOCCAL VACCINE Aged Out No long er eligible based on patient's age to complete this topic Insurance [employer] Member Subscriber Plan / Payer (Ef fective for All Dates) Name:Heather Smith Member ID:[id number] Relation to Subscriber:Spouse Name:BRUCE SMITH Subscriber ID:Not on file Date of :1981 (Home) Address: [address] [place] [address] Payer ID:Not on file Type:HMO Address: [address] [address] [employer] [place] Member Subscriber Plan / Payer (Ef fective for All Dates) Name:Heather Smith Member ID:Not on file Relation to Subscriber:Not on file Name:HEATHER SMITH Subscriber ID:Not on file (Home) Address: [address] [place] [id number] Payer ID:Not on file Group ID:Not on file Type:Self Pay Address: [place], [place] Care Teams Pantograph Setter Relationship Specialty Start Date End Date Tyrese Fields DO [address] [place] [address] PCP - General 10/09/22
--- OUTSIDE RECORDS SUMMARY | 2025-04-09 15:36 | XMS_ITS | Encounter Summary ---
Author Organization [facility] Address [address] [place] [address] Care Team Providers Care Immigration Patrol Inspector Name Role Phone Tyrese Fields MD Primary Care Provider +- [phone] Fide aMchado MD Unavailable [phone] Encounter Details Date Type Department Care Team (Late st Contact Info) Description 03/02/2025 Results Follow-Up [facility] [address] [place] [address] Katharine Pickett, AUTO PAINTER 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
--- OUTSIDE RECORDS SUMMARY | 2025-04-09 15:36 | XMS_ITS | Encounter Summary ---
Author Organization [facility] Care Team Providers Care Partner Marketing Manager Name Role Phone Tyrese Fields MD Primary Care Provider +- [phone] Fide Machado MD Unavailable [phone] Encounter Details Date Type Department Care Team (Latest Contact Info) Description 12/12/2015 Orders Only [facility] Provider, MD [place] [address] [place], [place] [id number] Social History Tobacco Use Types Packs/Day Years Used Date Smoking Tobacco: Never Alcohol Use Standard Drinks/Week Comments No 0 (1 standard drink = 0.6 oz pur e alcohol) Comments Unknown Sex and Gender Information Value Date Recorded Sex Assigned at Not on file Legal Sex Female 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 Historical Provider Final Res ult * PROCEDURE - RESULT (12/12/2015 12:00 AM OUTDOOR ADVENTURE INSTRUCTOR) Narrative 12/12/2015 12:00 AM OUTDOOR ADVENTURE INSTRUCTOR Ordered by an unspecified provider. us Historical Provider Final Res ult documented in this encounter Visit Diagnoses Not on filedocumented in this encounter Care Teams Partner Marketing Manager Relationship Specialty Start Date End Date Tyrese Fields MD [address] [place] [address] PCP - General 10/19/11 Fide Machado MD [address] [place] [address] Consulting Physician Obstetrics and Gynecology 01/10/24 documented as of this encounter
== END ==
LOC: ANHLAB 15:34
PROVIDERS: PCP Internal Medicine; Visit Provider Plastic Surgery
DX: L98.6 Other infiltrative disorders of the skin and subcutaneous tissue (principal); D22.71 Melanocytic nevi of right lower limb, including hip
CPT/HCPCS: 88305